=== PATIENT | male | born 2000 | race Caucasian/White ===

== ENCOUNTER 2020-12-07 03:13 | Emergency (ER) | payer BC, SELFPAY ==
--- NOTE | ~2020-12-07 | XR_ITS ---
EXAMINATION: XR knee RT 3V DATE: 12/07/2020 03:35 INDICATION: Right knee pain TECHNIQUE: Three views of the right knee were obtained. COMPARISON: None. FINDINGS: Alignment is normal. No fracture or osteochondral lesion. Joint spaces are normal with no e rosions. No joint effusion/synovitis. There is mild anterior soft tissue swelling of the knee. No r adiopaque foreign body is identified. IMPRESSION: 1. No acute osseous abnormality. Reviewed, dictated and finalized at location A.
[2020-12-07 03:22] VITALS: BP 141/108; PULSE 75; RESP 14; TEMP 36.8; O2SAT 100
--- NOTE | 2020-12-07 04:07 | ED.LOWEXIN ---
HPI - Extremity Injury (Lower) General Chief Complaint: Extremity Injury, Lower Stated Complaint: right knee pain Time Seen by Provider: 12/07/20 03:19 History of Present Illness HPI Narrative: Patient presents with right knee pain. Patient ports he was playing basketball and landed on his right leg and developed pain in his right knee. His pain was initially tolerable however got progressively worse over the course of a few hours there is now having a difficult time ambulating so he came to the ER for evaluation. Pain is achy, constant, no radiation, worse with attempting to use his joint. Denies any focal numbness or weakness. Denies any head injuries Related Data Allergies Allergy/AdvReac Type Severity Reaction Status Date / Time No Known Allergies Allergy Verified 12/07/20 03:24 Review of Systems Review of Systems: CONSTITUTIONAL: Denies fever, chills, or sweats. EYES: Denies visual changes, redness, or discharge. CARDIOVASCULAR: Denies chest pain, palpitations, or edema. GASTROINTESTINAL: Denies abdominal pain, nausea, vomiting, or diarrhea. SKIN: Denies rash or itching. MUSCULOSKELETAL: Denies back pain, myalgia. NEUROLOGIC: Denies headache, numbness, dizziness, or weakness. Exam Narrative: GENERAL: Well-appearing, well-nourished, and in no acute distress. HEAD: Normocephalic, atraumatic. EYES: PERRLA and EOMI. ENT: Nares clear, no rhinorrhea or epistaxis. Mucous membranes moist. NECK: Supple. No masses. No JVD EXTREMITIES: Limited range of motion on the right knee due to pain there is diffuse tenderness on the joint space no focal bony tenderness no obvious deformity no open or draining wounds. Knee joint is stable to anterior and posterior drawer. Valgus and varus stress exam limited but did appear to be stable on exam today. SKIN: Warm, dry, no rash. NEURO: No focal deficits. Alert and oriented x3. PSYCH: Normal mood and affect. Course Vital Signs Vital signs: Vital Signs Temperature 36.8 C 12/07/20 03:22 Pulse Rate 75 12/07/20 03:22 Respiratory Rate 14 12/07/20 03:22 Blood Pressure 141/108 H 12/07/20 03:22 Pulse Oximetry 100 12/07/20 03:22 Temperature 36.8 C 09/03/21 03:22 Pulse Rate 75 12/07/20 03:22 Respiratory Rate 14 12/07/20 03:22 Blood Pressure 141/108 H 12/07/20 03:22 Pulse Oximetry 100 12/07/20 03:22 MDM - Extremity Injury (Lower) MDM Narrative Medical decision making narrative: H&P as above, vss, pt looks clinically well, exam without major neurovascular compromise or deformity, imaging without acute process, additional labs/img considered. symptomatic relief available as needed, patient declined analgesic medications on reevaluation pt continues to looks clinically well. Suspect soft tissue injury such as strain or contusion, dns fracture, dislocation, major neurovascular compromise. plan to tx/monitor as op w/ pcm f/u findings/plan discussed with pt, pt agree/comfortable with plan, return precautions given. RICE educatoin given. Imaging Data Attestation: I personally reviewed and interpreted this imaging study as follows: My impression: Knee plain films without acute fracture Discharge Plan Discharge Clinical Impression: Knee joint pain Qualifiers: Laterality: right Qualified Code(s): M25.561 - Pain in right knee Patient Disposition: Home, Self-Care Condition: Improved Instructions: Antibiotic Form, R.I.C.E. Treatment (ED) Additional Instructions: Please return if your symptoms worsen or fail to improve. If you have worsening pain develop numbness, weakness, or if you have any other concerns. Follow-up/Referrals: PHYSICIAN NOT ON STAFF,NONSTAFF [Primary Care Provider] - Time of Disposition: 04:11
== END 2020-12-07 04:32 | disposition home or self-care (01) ==
PROVIDERS: Emergency Provider Emergency Medicine
DX: M25.561 Pain in right knee (principal)
CPT/HCPCS: 73562; 99283